=== PATIENT | male | born 1990 ===

== ENCOUNTER 2017-02-07 09:40 | Emergency (ER) | payer OTHER ==
--- NOTE | 2017-02-14 18:56 | ER ---
ADMIT: 02/07/2017 RM/LOC: ER [facility] MR#: [id number] [id number] [place], [place] [id number] IRENE TOLBERT [address] [place], [place] [address] [address] Emergency Room Report SEX: M AGE: 26 : 1990 DATE: 02/07/2017 ADDENDUM: CHIEF COMPLAINT: Laceration to the left 5th finger. HISTORY OF PRESENT ILLNESS: This is a 26-year-old who was cutting up onions at work. He cut his finger with a knife. Suture repair was done here in the ER. Please see T-sheet for that information. CLINICAL IMPRESSION: Laceration to the left 5th finger. GEOVANNI Ferrer / Ignacio Howe MD / abnerl JOB #: [id number] CC: Ignacio Howe MD, Attending Physician UNKNOWN, Family Physician
== END 2017-02-07 10:50 | disposition home or self-care (01) ==
LOC: ER 09:40
PROC: 0HQGXZZ Repair Left Hand Skin, External Approach (ICD-10-PCS; principal; 2017-02-07)
DX: S61.217A Laceration without foreign body of left little finger without damage to nail, initial encounter (principal); Z23 Encounter for immunization; W26.0XXA Contact with knife, initial encounter; Y92.009 Unspecified place in unspecified non-institutional (private) residence as the place of occurrence of the external cause